=== PATIENT | female | born 1985 | race Caucasian/White ===

== ENCOUNTER 2024-05-29 14:32 | Outpatient (CLI) | payer BC ==
[2024-05-29] MEDS ORDERED: LIDOcaine 1% 30ml preserv. free vial ONE (14:53)
[2024-05-29] MEDS ORDERED: iohexol 300 MG/1 ML 50ml polymer ONE (14:53)
[2024-05-29] MEDS ORDERED: LIDOcaine 1%/PF 5ML 10 MG/ML VIAL ONE (14:53)
[2024-05-29] MEDS ORDERED: GADOTERATE MEGLUMINE 7.5 MMOL/15 ML VIAL IV ONE (14:54)
== END 2024-05-29 23:59 | disposition home or self-care (01) ==
LOC: RAD 14:32
PROVIDERS: ATTEND Family Medicine Sports Medicine
DX: M75.32 Calcific tendinitis of left shoulder (principal); M25.412 Effusion, left shoulder; M79.602 Pain in left arm; R20.2 Paresthesia of skin; R20.0 Anesthesia of skin
CPT/HCPCS: 23350; 73222; 77002; A9575; J2003; J3490; Q9967; 73040